=== PATIENT | female | born 1930 | race Caucasian/White ===

== ENCOUNTER → 2017-01-13 | Outpatient (CLI) | payer MEDICARE ==
--- NOTE | 2017-01-14 13:53 | MM ---
Reason for exam: screening (asymptomatic). Last mammogram was performed 2 years and 2 months ago. History: Patient is postmenopausal and history of other cancer. Physical Findings: A clinical breast exam by your physician is recommended on an annual basis and results should be correlated with mammographic findings. MG 3D Screening Mammo W/Cad Bilateral CC and MLO view(s) were taken. Prior study comparison: November 10, 2014, mammogram, performed at [facility]. November 03, 2013, mammogram, performed at [facility]. The breast tissue is heterogeneously dense. This may lower the sensitivity of mammography. No suspicious abnormality. No significant changes when compared with prior studies. ASSESSMENT: Negative, BI-RAD 1 RECOMMENDATION: Routine screening mammogram of both breasts in 1 year.
== END | disposition home or self-care (01) ==
LOC: RADMAMWWP 13:29
PROVIDERS: ATTEND Internal Medicine
DX: Z12.31 Encounter for screening mammogram for malignant neoplasm of breast (principal)
CPT/HCPCS: 77063; G0202

== ENCOUNTER → 2017-04-10 | Outpatient (CLI) | payer MEDICARE ==
--- NOTE | 2017-04-10 14:21 | BD ---
EXAMINATION TYPE: MG DEXA axial skeleton. DATE OF EXAM: 04/10/2017 COMPARISON: DEXA bone scan December 14, 2013 CLINICAL HISTORY: Known osteoporosis per order. Height: 63 Weight: 146.4 FRAX RISK QUESTIONS: Alcohol (3 or more units per day): no Family History (Parent hip fracture): no Glucocorticoids (More than 3mos): no (Ex: prednisone, prednisolone, methylprednisolone, dexamethasone, and hydrocortisone). History of Fracture in Adulthood: no Secondary Osteoporosis: 1. Type 1 Diabetes: no 2. Hyperthyroidism: no 3. Menopause before 45: no 4. Malnutrition: no 5. Chronic liver disease: no Rheumatoid Arthritis: no Current Tobacco Use: no RISK FACTORS HISTORY OF: Hip Fracture (Right/Left): no Spine Fracture: no History of Wrist Fracture: no Surgery to Spine/Hip(right/left)/Wrist (right/left): no Family History of Osteoporosis: no Active: yes Diet low in dairy products/other sources of calcium: no Postmenopausal woman: hysterectomy age 48 Lost more than 2 inches in height since high school: yes Frequent falls: yes Poor Health: no Hyperparathyroidism: no Adrenal Insufficiency: no MEDICATIONS: statin for cholesterol, diuretic Additional History: EXAM MEASUREMENTS: Bone mineral densitometry was performed using the [employer] System. Bone mineral density as measured about the Lumbar spine is: ----- L1-L4(G/cm2): 1.268 T Score Values are as follows: ----- L2: 0.6 ----- L3: 1.5 ----- L4: 0.9 ----- L1-L4: 0.7 Bone mineral density has: decreased -2.1 % since study of: 12.14.2013 Bone mineral density about the R hip (g/cm2): 0.910 Bone mineral density about the L hip (g/cm2): 0.844 T Score values are as follows: -----R Neck: -0.9 -----L Neck: -1.4 -----R Total: -0.9 -----L Total: -0.8 Bone mineral density has: decreased -2.6 % since study of: 12.14.2013 IMPRESSION: Osteopenia (T Score between -2.5 and -1 as noted by T score values remains present at femoral neck le reed left hip. Bone density fairly stable from prior. There remains slightly increased risk of fractur e and the patient may be considered for treatment. Re-Screen 2-5 years. NOTE: T-SCORE=SD OF THE YOUNG ADULT MEAN.
== END | disposition home or self-care (01) ==
LOC: RADBDWWP 13:11
PROVIDERS: ATTEND Internal Medicine
DX: M85.852 Other specified disorders of bone density and structure, left thigh (principal)
CPT/HCPCS: 77080

== ENCOUNTER → 2017-09-18 | Outpatient (CLI) | payer MEDICARE ==
--- NOTE | 2017-09-18 15:48 | US ---
EXAMINATION TYPE: US carotid duplex BILAT DATE OF EXAM: 09/18/2017 COMPARISON: NONE CLINICAL HISTORY: G45.3 Amaurosis fugax, I65.23 Carotid Stenosis. Amaurosis fugax right eye EXAM MEASUREMENTS: RIGHT: Peak Systolic Velocity (PSV) cm/sec ----- Right CCA: 75.6 ----- Right ICA: 160.9 ----- Right ECA: 156.9 ICA/CCA ratio: 2.1 RIGHT: End Diastole cm/sec ----- Right CCA: 18.8 ----- Right ICA: 39.7 ----- Right ECA: 11.0 LEFT: Peak Systolic Velocity (PSV) cm/sec ----- Left CCA: 88.6 ----- Left ICA: 121.1 ----- Left ECA: 135.0 ICA/CCA ratio: 1.4 LEFT: End Diastole cm/sec ----- Left CCA: 22.6 ----- Left ICA: 31.8 ----- Left ECA: 10.7 VERTEBRALS (direction of flow): Right Vertebral: Antegrade Left Vertebral: Antegrade Rhythm: Normal Slightly elevated velocities bilateral ECA's, elevated velocity right ICA, most likely due to tortu osity vs. stenosis IMPRESSION: 1. Stenosis corresponding to 50-69% within the right internal carotid artery and stenosis approaching 50% criteria within the left internal carotid artery. Bilateral external carotid arteries also demon strate 50-69% stenosis. CTA neck could be performed for more accurate assessment of degree of stenosi s.
== END | disposition home or self-care (01) ==
LOC: RADUSWWP 15:17
PROVIDERS: ATTEND Internal Medicine
DX: I65.23 Occlusion and stenosis of bilateral carotid arteries (principal); G45.3 Amaurosis fugax
CPT/HCPCS: 93880

== ENCOUNTER → 2019-05-20 | Outpatient (CLI) | payer MEDICARE ==
--- NOTE | 2019-05-20 16:17 | BD ---
EXAMINATION TYPE: Axial Bone Density DATE OF EXAM: 05/20/2019 COMPARISON: NONE CLINICAL HISTORY: 88-year-old female with disorder of bone Height: 65 Weight: 145.5 FRAXIN RISK QUESTIONS: Alcohol (3 or more units per day): no Family History (Parent hip fracture): no Glucocorticoids (More than 3mos): no (Ex: prednisone, prednisolone, methylprednisolone, dexamethasone, and hydrocortisone). History of Fracture in Adulthood: no Secondary Osteoporosis: 1. Type 1 Diabetes: no 2. Hyperthyroidism: no 3. Menopause before 45: no 4. Malnutrition: no 5. Chronic liver disease: no Rheumatoid Arthritis: no Current Tobacco Use: no RISK FACTORS HISTORY OF: Family History of Osteoporosis: no Active: sometimes Diet low in dairy products/other sources of calcium: no Postmenopausal woman: age 48 Lost more than 2 inches in height since high school: yes Frequent falls: yes MEDICATIONS: statin, cholesterol, diuretic Additional History: EXAM MEASUREMENTS: Bone mineral densitometry was performed using the [employer] System. Bone mineral density as measured about the Lumbar spine is: ----- L1-L4(G/cm2): 1.272 T Score Values are as follows: ----- L2: 0.4 ----- L3: 1.6 ----- L4: 0.8 ----- L1-L4: 0.8 Bone mineral density has: decreased -0.5 % since study of: 04.10.2017 Bone mineral density about the R hip (g/cm2): 0.894 Bone mineral density about the L hip (g/cm2): 0.820 T Score values are as follows: -----R Neck: -1.0 -----L Neck: -1.6 -----R Total: -1.1 -----L Total: -1.1 Bone mineral density has: decreased -3.2 % since study of: 04.10.2017 IMPRESSION: Osteopenia (T Score between -2.5 and -1). There is slightly increased risk of fracture and the patient may be considered for treatment. Re-Screen 2-5 years. NOTE: T-SCORE=SD OF THE YOUNG ADULT MEAN.
== END ==
LOC: RADBDWWP 09:09
PROVIDERS: ATTEND Internal Medicine
DX: M81.8 Other osteoporosis without current pathological fracture (principal)
CPT/HCPCS: 77080

== ENCOUNTER → 2020-01-21 | Outpatient (CLI) | payer MEDICARE ==
--- NOTE | 2020-01-21 15:38 | US ---
EXAMINATION TYPE: US carotid duplex BILAT DATE OF EXAM: 01/21/2020 COMPARISON: 09/23/2018 CLINICAL HISTORY: 89-year-old female I65.23 Occlusion and stenosis. Annual followup for carotid arter y disease TECHNIQUE: Carotid duplex ultrasound examination. Indirect Doppler criteria was utilized. FINDINGS: EXAM MEASUREMENTS: RIGHT: Peak Systolic Velocity (PSV) cm/sec ----- Right CCA: 73.8 ----- Right ICA: 117.3 ----- Right ECA: 83.3 ICA/CCA ratio: 1.6 RIGHT: End Diastole cm/sec ----- Right CCA: 18.8 ----- Right ICA: 30.5 ----- Right ECA: 13.9 LEFT: Peak Systolic Velocity (PSV) cm/sec ----- Left CCA: 65.1 ----- Left ICA: 90.8 ----- Left ECA: 72.2 ICA/CCA ratio: 1.4 LEFT: End Diastole cm/sec ----- Left CCA: 17.1 ----- Left ICA: 31.4 ----- Left ECA: 10.1 VERTEBRALS (direction of flow): Right Vertebral: Antegrade Left Vertebral: Antegrade Rhythm: Normal Database Programmer Analyst notes: Mixed intimal wall changes are seen in bilateral carotid bifurcation, but PSV is w nl bilaterally. IMPRESSION: No hemodynamically significant internal carotid artery stenosis identified on either side. Criteria for Assigning % of Stenosis / Diameter reduction (Estimation based on the indirect measurements of the internal carotid artery velocities (ICA PSV). 1. Normal (no stenosis)=ICA PSV < 125 cm/s: ratio < 2.0: ICA EDV<40 cm/s. 2. Less than 50% stenosis=ICA PSV < 125 cm/s: ratio < 2.0: ICA EDV<40 cm/s. 3. 50 to 69% stenosis=ICA PSV of 125 to 230 cm/s: ration 2.0 ? 4.0: ICA EDV 40-100 cm/s. 4. Greater than 70% stenosis to near occlusion= ICA PSV > 230 cm/s: ratio > 4.0: ICA EDV > 100 cm/s. 5. Near occlusion= ICA PSV velocities may be low or undetectable: variable ratio and ICA EDV. 6. Total occlusion=unable to detect flow.
== END | disposition home or self-care (01) ==
LOC: RADUSWWP 13:36
PROVIDERS: ATTEND Internal Medicine
DX: I65.23 Occlusion and stenosis of bilateral carotid arteries (principal)
CPT/HCPCS: 93880

== ENCOUNTER → 2020-08-15 | Outpatient (CLI) | payer MEDICARE ==
[2020-08-15 15:31] LABS: Reticulocyte % 1.15 % (0.10-1.80)
[2020-08-15 18:18] LABS: % Iron Saturation 33.44 (12.00-45.00); Iron 101 ug/dL (50-170); LDH 168 U/L (120-246); Total Iron Binding Capacity 302 ug/dL (228-460)
[2020-08-15 18:27] LABS: Ferritin 51.1 ng/mL (10.0-291.0)
[2020-08-15 18:32] LABS: Folate, Serum >24.0 ng/mL
[2020-08-15 19:30] LABS: Hepatitis A Antibody IgM Non-Reactive (Non-Reactive); Hepatitis B Core IgM Non-Reactive (Non-Reactive); Hepatitis B Surface Antigen Non-Reactive (Non-Reactive); Hepatitis C IgG Antibody Non-Reactive (Non-Reactive)
== END | disposition home or self-care (01) ==
LOC: LABWHC1 08:04
PROVIDERS: ATTEND Internal Medicine
DX: K75.9 Inflammatory liver disease, unspecified (principal); D75.89 Other specified diseases of blood and blood-forming organs; D68.51 Activated protein C resistance
CPT/HCPCS: 36415; 80074; 81241; 82607; 82728; 82746; 83010; 83540; 83550; 83615; 85045; 85220

== ENCOUNTER → 2021-05-30 | Outpatient (CLI) | payer MEDICARE ==
--- NOTE | 2021-05-30 14:33 | BD ---
EXAMINATION TYPE: Axial Bone Density DATE OF EXAM: 05/30/2021 COMPARISON: 05/20/2019 CLINICAL HISTORY: Height: 62.5 IN Weight: 142 LBS FRAX RISK QUESTIONS: Secondary Osteoporosis: 3. Menopause before 45: TOTAL HYST AGE 46 RISK FACTORS HISTORY OF: Active: YES Postmenopausal woman: TOTAL HYST AGE 46 Take estrogen and/or progesterone medications: NOT NOW How long: TOOK FOR ABOUT 3 YEARS Lost more than 2 inches in height since high school: YES 04/01" MEDICATIONS: Additional Medications: CALCIUM, VIT D, CHOLESTEROL MEDS, BLOOD PRESSURE MEDS Additional History: ENDOMETRIAL CANCER NO TREATMENTS. EXAM MEASUREMENTS: Bone mineral densitometry was performed using the [employer] System. Bone mineral density as measured about the Lumbar spine is: ----- L1-L4(G/cm2): 1.293 T Score Values are as follows: ----- L2: 1.1 ----- L3: 1.4 ----- L4: 1.1 ----- L1-L4: 0.9 Bone mineral density has: Increased 2.4% since study of: 05/20/2019 Bone mineral density about the R hip (g/cm2): 0.894 Bone mineral density about the L hip (g/cm2): 0.826 T Score values are as follows: -----R Neck: -1.0 -----L Neck: -1.5 -----R Total: -1.3 -----L Total: -1.4 Bone mineral density has: Decreased -3.9% since study of: 05/20/2019 IMPRESSION: Osteopenia NOTE: T-SCORE=SD OF THE YOUNG ADULT MEAN.
== END | disposition home or self-care (01) ==
LOC: RADBDWWP 12:32
PROVIDERS: ATTEND Internal Medicine
DX: M81.0 Age-related osteoporosis without current pathological fracture (principal); M85.80 Other specified disorders of bone density and structure, unspecified site
CPT/HCPCS: 77080